=== PATIENT | female | born 1960 | race Caucasian/White ===

== ENCOUNTER 2024-08-18 22:40 | Emergency (ER) | payer MEDICARE, SELFPAY ==
[2024-08-18 22:41] VITALS: BP 161/85; PULSE 92; RESP 18; TEMP 36.3; O2SAT 99
--- NOTE | 2024-08-18 22:56 | ED.GENADULT ---
HPI - General Adult General Stated complaint: unspecified Time Seen by Provider: 08/18/24 22:48 History of Present Illness HPI narrative: Ladonna is a previously healthy 64F that presented to the ED with a couple days of pain in her left year. She thought she lost part of an earring in it and has been trying to dig/flush it out. No drainage, fevers, or hearing changes. Review of Systems Review of Systems: All systems reviewed & are unremarkable except as noted in HPI and below Exam Const: General: cooperative, healthy appearing, comfortable, no acute distress, well developed, alert, awake and Physically active Orientation/consciousness: oriented to person, oriented to place and oriented to time HENMT: Head: normal to inspection, normocephalic and atraumatic Ears: hearing grossly normal bilaterally and external ears normal Face/Nose/Sinus: Normal external nose present Other: Erythematous an swollen left ear canal Eyes: General: appearance normal, both eyes and all related structures Periorbital: periorbital findings normal Sclera: sclerae normal Pupils: Equal, round and reactive pupils present Neck: Neck: normal visual inspection Chest: Chest palpation & inspection: normal inspection of the chest Resp: Effort & Inspection: normal respiratory effort Auscultation: clear to auscultation bilaterally Cardio: Jugular venous distension: no JVD Rate: regular rate Rhythm: regular rhythm GI: Inspection: normal to inspection GI Palp: Yes Soft to palpation Auscultation: normal bowel sounds Skin: General skin exam: normal color and no rashes or lesions noted Neuro: General: oriented to person, oriented to place and oriented to time Cranial nerves: Yes Equal, round and reactive pupils present Extrem: General: normal to inspection Course Vital Signs Vital signs: Vital Signs Temperature 97.3 F L 08/18/24 22:41 Pulse Rate 92 08/18/24 22:41 Respiratory Rate 18 08/18/24 22:41 Blood Pressure 161/85 H 08/18/24 22:41 Pulse Oximetry 99 08/18/24 22:41 Oxygen Delivery Room Air 08/18/24 22:41 Temperature 97.3 F L 08/18/24 22:41 Pulse Rate 92 08/18/24 22:41 Respiratory Rate 18 08/18/24 22:41 Blood Pressure 161/85 H 08/18/24 22:41 Pulse Oximetry 99 08/18/24 22:41 Oxygen Delivery Room Air 08/18/24 22:41 Medical Decision Making Vital Signs Vital Signs: Vital Signs Temperature 97.3 F L 08/18/24 22:41 Pulse Rate 92 08/18/24 22:41 Respiratory Rate 18 08/18/24 22:41 Blood Pressure 161/85 H 08/18/24 22:41 Pulse Oximetry 99 08/18/24 22:41 Oxygen Delivery Room Air 08/18/24 22:41 Temperature 97.3 F L 08/18/24 22:41 Pulse Rate 92 08/18/24 22:41 Respiratory Rate 18 08/18/24 22:41 Blood Pressure 161/85 H 08/18/24 22:41 Pulse Oximetry 99 08/18/24 22:41 Oxygen Delivery Room Air 08/18/24 22:41 Discharge Plan Discharge Clinical Impression: Otitis externa Patient Disposition: Home, Self-Care Condition: Stable Instructions: Antibiotic Form Prescriptions: New [id number] 3.5-10,000-1 mg/mL-unit/mL-% drops,suspension 4 drp RIGHT EAR Q8H 7 Days Qty: 10 0RF Follow-up/Referrals: Misha,CHANDA Joseph [Primary Care Provider] -
[2024-08-19] MEDS: KETOROLAC 30 MG/ML VIAL (*BKC) IM (00:09)
[2024-08-19] MEDS: CIPROFLOXACIN HC OTIC 10 ML 3 DROP RIGHT EAR (00:10)
[2024-08-19 00:18] VITALS: BP 122/77; PULSE 76; RESP 18; TEMP 36.4; O2SAT 98
== END 2024-08-19 00:23 | disposition home or self-care (01) ==
PROVIDERS: Emergency Provider Family Medicine; PCP Physician Assistant
DX: H60.92 Unspecified otitis externa, left ear (principal)
CPT/HCPCS: 96372; 99283; A9270; J1885